=== PATIENT | female | born 1970 | race Two or more races ===

== ENCOUNTER 2018-05-14 12:30 | Day surgery (SDC) | payer BC ==
[2018-05-14] MEDS ORDERED: LIDOCAINE 100 MG SYRINGE (14:54)
[2018-05-14] MEDS ORDERED: PROPOFOL 20 ML (14:54)
[2018-05-14] MEDS ORDERED: MIDAZOLAM 1 MG/ML 2 ML INJ (14:54)
== END 2018-05-14 15:54 | disposition home or self-care (01) ==
LOC: GIL 12:30
DX: Z12.11 Encounter for screening for malignant neoplasm of colon (principal); K25.3 Acute gastric ulcer without hemorrhage or perforation; K64.8 Other hemorrhoids
CPT/HCPCS: 43239; 84703; 88305

== ENCOUNTER 2018-11-26 13:39 | Day surgery (SDC) | payer BC ==
[2018-11-26] MEDS ORDERED: LIDOCAINE 2% (SDV) 5 ML INJ (16:37)
[2018-11-26] MEDS ORDERED: PROPOFOL 40 ML (16:37)
== END 2018-11-26 18:23 | disposition home or self-care (01) ==
LOC: GIL 13:39
DX: K29.70 Gastritis, unspecified, without bleeding (principal)
CPT/HCPCS: 43239; 88305; 88312